=== PATIENT | female | born 1950 | race Caucasian/White ===

== ENCOUNTER 2025-02-06 22:31 | Emergency (ER) | payer OTHER, SELFPAY ==
[2025-02-06 22:34] VITALS: BP 155/93
--- NOTE | 2025-02-07 00:47 | ED.GENMED ---
History of Present Illness
General
Chief Complaint: Extremity Pain (non-traumatic)
Time Seen by Provider: 02/06/25 23:49
History of Present Illness
History of Present Illness:
74-year-old female presents the emergency department for evaluation of nontraumatic right calf pain is been ongoing for the past 3 days. She is able to bear weight with discomfort. Pain initially started as tingling to the right thigh before
traveling to the right leg. She is primarily concerned about a possible DVT. Denies any symptoms of injury to the leg. No fevers or chills. No recent prolonged immobilization or travel
Review of Systems
Review of Systems
Allergies reviewed?: Yes
All Other Systems: ROS reviewed and negative except as documented in HPI and ROS
Phy Exam
Physical Exam
Physical Exam:
GEN: Well appearing, NAD, WDWN
HEENT: Oral mucosa moist, no scleral icterus
Cardiac: Regular rate
Lung: No respiratory distress, no tachypnea
MSK: No gross deformity or injuries. Tenderness elicited to the proximal lateral calf, calf compartments are soft x 4. There is no pain with passive stretch of the ankle. Pain is elicited with resisted ankle dorsiflexion no pain with resisted
plantarflexion. Normal right knee range of motion.
Skin: Good color, no pallor or jaundice, no rashes
Neuro: AO x3, moves all extremities freely
Psych: Calm, cooperative
Course
Orders/Labs/Results
Orders:
Orders
02/06/25 22:40
Legs, Right US [US Periph Venous LOWER Ext RT] Urgent
Comment:
Reason For Exam: L posterior knee/calf pain x 3 days
02/07/25 00:17
CR Leg Tibia/fibula Right 2 Vw Urgent
Comment:
Reason For Exam: specific pain
02/07/25 00:47
Naproxen [Naprosyn] 500 mg PO NOW STA
Vital Signs
Initial and Last Documented VS:
Initial Vital Signs
Temp Pulse Resp BP Pulse Ox
97.8 F 82 18 155/93 100
02/06/25 22:34 02/06/25 22:34 02/06/25 22:34 02/06/25 22:34 02/06/25 22:34
Last Documented Vital Signs
Temp Pulse Resp BP Pulse Ox
97.8 F 82 18 155/93 98
02/06/25 22:34 02/06/25 22:34 02/06/25 22:34 02/06/25 22:34 02/07/25 00:22
MDM/Problems Addressed
MDM/Problems Addressed:
DVT study is unremarkable and tib-fib x-rays show no bony pathology. Unclear etiology to symptoms although clearly reproducible on exam and with manipulation
*Critical Care Note
Total Time (30-74mins, 75-104mins- exclusive of procedures): Not Applicable
ED Attending Note
-
Portions of this chart may have been created with voice recognition software.� Occasional wrong word or��sound alike� substitutions may have occurred due to the inherent limitations of voice recognition software.
Discharge Plan
Departure
Patient Disposition: Home (Routine Discharge)
Date of Disposition: 02/07/25
Time of Disposition: 00:47
Patient with high blood pressure during this ER visit?: No
Discharge Problem:
Pain of right calf
Instructions: Muscle and Bone Pain (DC)
Prescriptions:
New
methocarbamol 750 mg tablet
750 mg PO Q8H PRN (Reason: pain) Qty: 10 0RF
Referrals:
Zulema Vila MD [Family Provider, Family Practice]
Activity Restrictions/Additional Instructions:
Try over the counter Voltaren (diclofenac) topical cream/gel for pain relief
Follow up with your primary doctor if symptoms persist
Interventions
Interventions:
*Risk Screen - Suicide Last Done: 02/06/25 22:34
*General Assessment Last Done: 02/06/25 22:34
*Neglect/Abuse Screening Last Done: 02/06/25 22:34
*ED- Fall Risk Assessment Last Done: 02/07/25 01:07
*ED COVID-19 Vaccine History Last Done: 02/07/25 01:07
*Nursing Disposition Last Done: 02/07/25 01:07
ED-Skin Assessment Last Done: 02/07/25 01:07
ED-Peripheral Vascular Assessment Last Done: 02/07/25 00:22
ED- Pulmonary Assessment Last Done: 02/07/25 00:22
ED-Musculoskeletal Assessment Last Done: 02/07/25 00:22
ED- Cardiac Assessment Last Done: 02/07/25 00:22
Discharge Date and Time
Discharge Date/Time: 02/07/25 01:09
Print Language: THAI
[2025-02-07] MEDS: NAPROSYN 500 MG PO (01:05)
== END 2025-02-07 01:09 | disposition home or self-care (01) ==
LOC: EMR 22:31
PROVIDERS: EMERGENCY PHYSICIAN Emergency Medicine; FAMILY PHYSICIAN Family Medicine
DX: M79.661 Pain in right lower leg (principal)
CPT/HCPCS: 99284; 73590; 93971